=== PATIENT | female | born 1995 | race African-American/Black ===

== ENCOUNTER 2020-04-09 16:25 | Emergency (ER) | payer OTHER ==
[~2020-04-09] VITALS: Ht 152.4 cm; Wt 45.5 kg
[2020-04-10 12:20] VITALS: BP 118/75
== END 2020-04-10 12:23 | disposition home or self-care (01) ==
LOC: ER 16:25
DX: Z60.9 Problem related to social environment, unspecified (principal); Z99.3 Dependence on wheelchair; R03.0 Elevated blood-pressure reading, without diagnosis of hypertension; G80.9 Cerebral palsy, unspecified; F31.9 Bipolar disorder, unspecified
CPT/HCPCS: 81025; 99283